=== PATIENT | female | born 1990 | race Two or more races ===

== ENCOUNTER 2021-02-28 04:42 | Emergency (ER) | payer OTHER ==
[~2021-02-28] VITALS: Ht 165.1 cm; Wt 93.0 kg
[2021-02-28 07:45] VITALS: BP 88/56
== END 2021-02-28 08:10 | disposition home or self-care (01) ==
LOC: ER 04:42
DX: S56.912A Strain of unspecified muscles, fascia and tendons at forearm level, left arm, initial encounter (principal); M79.18 Myalgia, other site; R51.9 Headache, unspecified; F10.10 Alcohol abuse, uncomplicated; Y08.89XA Assault by other specified means, initial encounter; Y93.89 Activity, other specified; Y92.89 Other specified places as the place of occurrence of the external cause; Y99.8 Other external cause status
CPT/HCPCS: 70450; 70486; 71045; 72125; 73090